=== PATIENT | female | born 1970 | race Caucasian/White ===

== ENCOUNTER 2018-01-18 01:37 | Emergency (ER) | payer BC | END 2018-01-18 05:29 | disposition home or self-care (01) | LOC: ERS 01:37 | DX: S16.1XXA Strain of muscle, fascia and tendon at neck level, initial encounter (principal); E03.9 Hypothyroidism, unspecified; E78.5 Hyperlipidemia, unspecified; E11.9 Type 2 diabetes mellitus without complications; X58.XXXA Exposure to other specified factors, initial encounter | CPT/HCPCS: 99283 ==

== ENCOUNTER 2019-10-26 08:58 | Outpatient (CLI) | payer BC ==
--- NOTE | 2019-10-26 10:30 | MMO ---
Bilateral MAMMO Bilat Screen [facility]. CLINICAL HISTORY: Patient is 49 years old and is seen for screening. The patient has no family history of breast cancer. The patient has no personal history of cancer. VIEWS: The views performed were: bilateral craniocaudal with tomosynthesis and bilateral mediolateral oblique with tomosynthesis. FILMS COMPARED: The present examination has been compared to prior imaging studies performed at [facility] on 07/15/2013, 08/07/2014 and 08/21/2015. This study has been interpreted with the assistance of computer-aided detection. MAMMOGRAM FINDINGS: There are scattered fibroglandular densities. There are no suspicious masses, suspicious calcifications, or new areas of architectural distortion. IMPRESSION: THERE IS NO MAMMOGRAPHIC EVIDENCE OF MALIGNANCY. A ROUTINE FOLLOW-UP MAMMOGRAM IN 1 YEAR IS RECOMMENDED. THE RESULTS OF THIS EXAM WERE SENT TO THE PATIENT. ACR BI-RADS Category 1 - Negative MAMMOGRAPHY NOTE: 1. A negative mammogram report should not delay a biopsy if a dominant of clinically suspicious mass is present. 2. Approximately 10% to 15% of breast cancers are not detected by mammography. 3. Adenosis and dense breasts may obscure an underlying neoplasm. Reported by: BAYRON ARREOLA MD Electonically Signed: [id number]
== END 2019-10-26 08:59 | disposition home or self-care (01) ==
LOC: BICMAMMO 08:58
PROVIDERS: ATTEND Family Medicine
DX: Z12.31 Encounter for screening mammogram for malignant neoplasm of breast (principal)
CPT/HCPCS: 77063; 77067

== ENCOUNTER 2020-11-21 10:19 | Outpatient (CLI) | payer BC | END 2020-11-21 10:20 | disposition home or self-care (01) | LOC: BICMAMMO 10:19 | PROVIDERS: ATTEND Family Medicine | DX: Z12.31 Encounter for screening mammogram for malignant neoplasm of breast (principal) | CPT/HCPCS: 77063; 77067 ==

== ENCOUNTER 2021-12-09 08:55 | Outpatient (CLI) | payer BC | END 2021-12-09 08:56 | disposition home or self-care (01) | LOC: BICMAMMO 08:55 | PROVIDERS: ATTEND Family Medicine | DX: Z12.31 Encounter for screening mammogram for malignant neoplasm of breast (principal) | CPT/HCPCS: 77063; 77067 ==

== ENCOUNTER 2023-02-06 09:30 | Outpatient (CLI) | payer BC | END 2023-02-06 09:31 | disposition home or self-care (01) | LOC: BICMAMMO 09:30 | PROVIDERS: ATTEND Family Medicine | DX: Z12.31 Encounter for screening mammogram for malignant neoplasm of breast (principal) | CPT/HCPCS: 77063; 77067 ==